=== PATIENT | female | born 1965 ===

== ENCOUNTER → 2021-08-23 12:20 | Outpatient (CLI) | payer OTHER, SELFPAY ==
[2021-08-23 19:04] LABS: Add Manual Diff / Slide Review NO; Basophils Absolute Auto 0 /uL (0-100); Basophils Percent Auto 0.6 % (0-2); Eosinophils Absolute Auto 0 /uL (0-450); Eosinophils Percent Auto 0.4 % (2-4); HEMOLYSIS < 15 (0-50); Hematocrit 39.1 % (36-46); Hemoglobin 13.3 g/dL (12.0-16.0); Iron 139 ug/dL (37-170); Lymphocytes Absolute Auto 1700 /uL (1100-4500); Lymphocytes Percent Auto 40.7 % (25-40); Mean Corpuscular HGB Conc 33.9 % (30-36); Mean Corpuscular Hemoglobin 29.9 PG (26-34); Mean Corpuscular Volume 88.3 fL (80-100); Monocytes Absolute Auto 300 /uL (0-900); Monocytes Percent Auto 6.3 % (3-14); Neutrophils Absolute Auto 2200 /uL (1500-7000); Platelet Count 183 X10^3/uL (150-400); Red Blood Cell Count 4.43 X10^6/uL (4.0-5.2); Red Cell Distribution Width 13.1 % (11.6-14.8); White Blood Cell Count 4.3 X10^3/uL (4.5-11.0)
[2021-08-23 19:08] LABS: Alanine Aminotransferase 35 IU/L (<35); Albumin 4.9 g/dL (3.5-5.0); Albumin Globulin Ratio 1.8 (1.0-2.8); Alkaline Phosphatase 62 U/L (38-126); Aspartate Aminotransferase 36 IU/L (14-36); BUN Creatinine Ratio 19.3 (6-22); Bilirubin Total 0.9 mg/dL (0.2-1.3); Blood Urea Nitrogen 17 mg/dL (7-17); Calcium 9.9 mg/dL (8.4-10.2); Carbon Dioxide 31 mmol/L (22-32); Chloride 101 mmol/L (98-107); Cholesterol 239 mg/dL (140-199); Estimated Glomerular Filt Rate > 60.0 mL/min (>60); Globulin 2.7 g/dL (1.7-4.1); Glucose 98 mg/dL (70-100); HDL Cholesterol 107 mg/dL (40-60); HEMOLYSIS < 15 (0-50); LDL Cholesterol Calculated 122 mg/dL (<100); Potassium 4.2 mmol/L (3.4-5.1); Sodium 138 mmol/L (137-145); Total Protein 7.6 g/dL (6.3-8.2); Triglycerides 48 mg/dL (35-150)
[2021-08-23 19:16] LABS: Percent Iron Saturation 42 % (15-50); Total Iron Binding Capacity 330 ug/dL (265-497); Transferrin 290 mg/dL (206-381)
[2021-08-23 19:17] LABS: Vitamin D 25 Hydroxy (D3) 70.5 ng/mL (30.0-100.0)
[2021-08-23 19:24] LABS: Free T3, Triiodothyronine Free 3.88 pg/mL (2.77-5.27); Free T4, Direct Thyroxine 1.04 ng/dL (0.78-2.19)
[2021-08-23 19:37] LABS: Thyroid Stimulating Hormone 0.882 uIU/mL (0.47-4.68)
[2021-08-23 19:43] LABS: Ferritin 93 ng/mL (11-264)
[2021-08-23 20:14] LABS: Folate > 20.0 ng/mL (2.76-20.0); Vitamin B12 > 1000 pg/mL (239-931)
[2021-08-24 06:58] LABS: C Peptide 1.2 ng/mL (1.1-4.4); Insulin Level Total 2.4 uIU/mL (2.6-24.9)
[2021-08-24 08:10] LABS: Apolipoprotein B 106 mg/dL (<90)
[2021-08-30 15:25] LABS: 1,25-Dihydroxy, Vitamin D-2 <10 pg/mL (.)
== END ==
PROVIDERS: PCP Physician Assistant Medical; Visit Provider Naturopath
DX: Z29.9 Encounter for prophylactic measures, unspecified (principal); H93.13 Tinnitus, bilateral; M19.90 Unspecified osteoarthritis, unspecified site
CPT/HCPCS: 80053; 80061; 82172; 82306; 82607; 82652; 82728; 82746; 83525; 83540; 83550; 83695; 84439; 84443; 84481; 84681; 85025

== ENCOUNTER → 2022-03-05 14:17 | Outpatient (CLI) | payer OTHER, SELFPAY ==
[2022-03-05 19:44] LABS: Add Manual Diff / Slide Review NO; Basophils Absolute Auto 0 /uL (0-100); Basophils Percent Auto 0.8 % (0-2); Eosinophils Absolute Auto 0 /uL (0-450); Eosinophils Percent Auto 0.7 % (2-4); Hematocrit 40.2 % (36-46); Hemoglobin 13.5 g/dL (12.0-16.0); Lymphocytes Absolute Auto 2000 /uL (1100-4500); Lymphocytes Percent Auto 38.7 % (25-40); Mean Corpuscular HGB Conc 33.6 % (30-36); Mean Corpuscular Hemoglobin 29.9 PG (26-34); Mean Corpuscular Volume 88.9 fL (80-100); Monocytes Absolute Auto 400 /uL (0-900); Monocytes Percent Auto 7.4 % (3-14); Neutrophils Absolute Auto 2700 /uL (1500-7000); Neutrophils Percent Auto 52.4 % (50-75); Platelet Count 183 X10^3/uL (150-400); Red Blood Cell Count 4.52 X10^6/uL (4.0-5.2); Red Cell Distribution Width 13.2 % (11.6-14.8); White Blood Cell Count 5.1 X10^3/uL (4.5-11.0)
[2022-03-05 19:57] LABS: Alanine Aminotransferase 18 IU/L (<35); Albumin 4.2 g/dL (3.5-5.0); Albumin Globulin Ratio 1.8 (1.0-2.8); Alkaline Phosphatase 55 U/L (38-126); Aspartate Aminotransferase 30 IU/L (14-36); BUN Creatinine Ratio 18.1 (6-22); Bilirubin Total 0.7 mg/dL (0.2-1.3); Blood Urea Nitrogen 15 mg/dL (7-17); Calcium 8.9 mg/dL (8.4-10.2); Carbon Dioxide 30 mmol/L (22-32); Estimated Glomerular Filt Rate > 60 mL/min (>60); Globulin 2.3 g/dL (1.7-4.1); Glucose 93 mg/dL (70-100); HEMOLYSIS < 15 (0-50); Sodium 139 mmol/L (137-145); Total Protein 6.5 g/dL (6.3-8.2)
[2022-03-05 20:09] LABS: Chloride 103 mmol/L (98-107)
[2022-03-05 20:26] LABS: Free T3, Triiodothyronine Free 3.91 pg/mL (2.77-5.27); Free T4, Direct Thyroxine 1.13 ng/dL (0.78-2.19)
[2022-03-05 20:39] LABS: Thyroid Stimulating Hormone 0.513 uIU/mL (0.47-4.68)
[2022-03-06 23:10] LABS: C Peptide 1.2 ng/mL (1.1-4.4); Insulin Level Total 2.7 uIU/mL (2.6-24.9)
== END ==
PROVIDERS: Naturopath; PCP Physician Assistant Medical; Visit Provider Physician Assistant Medical
DX: R94.7 Abnormal results of other endocrine function studies (principal)
CPT/HCPCS: 80053; 83525; 84439; 84443; 84481; 84681; 85025

== ENCOUNTER → 2024-07-14 10:54 | Outpatient (CLI) | payer OTHER, SELFPAY ==
[2024-07-14 20:16] LABS: Add Manual Diff / Slide Review NO; Basophils Absolute Auto 0 /uL (0-100); Basophils Percent Auto 0.8 % (0-2); Eosinophils Absolute Auto 0 /uL (0-450); Eosinophils Percent Auto 0.6 % (2-4); Hemoglobin 13.7 g/dL (12.0-16.0); Lymphocytes Absolute Auto 1900 /uL (1100-4500); Lymphocytes Percent Auto 35.3 % (25-40); Mean Corpuscular HGB Conc 33.3 % (30-36); Mean Corpuscular Hemoglobin 29.6 PG (26-34); Mean Corpuscular Volume 88.8 fL (80-100); Monocytes Absolute Auto 300 /uL (0-900); Monocytes Percent Auto 5.9 % (3-14); Neutrophils Absolute Auto 3100 /uL (1500-7000); Neutrophils Percent Auto 57.4 % (50-75); Platelet Count 193 X10^3/uL (150-400); Red Blood Cell Count 4.62 X10^6/uL (4.0-5.2); Red Cell Distribution Width 13.2 % (11.6-14.8); White Blood Cell Count 5.3 X10^3/uL (4.5-11.0)
[2024-07-14 20:18] LABS: Hemoglobin A1C% w Est Avg Glu 5.4 % (4.0-6.0)
[2024-07-14 20:25] LABS: Alanine Aminotransferase 24 IU/L (<35); Albumin 4.1 g/dL (3.5-5.0); Albumin Globulin Ratio 1.6 (1.0-2.8); Alkaline Phosphatase 62 U/L (38-126); Aspartate Aminotransferase 37 IU/L (14-36); BUN Creatinine Ratio 27.2 (6-22); Bilirubin Total 0.7 mg/dL (0.2-1.3); Blood Urea Nitrogen 22 mg/dL (7-17); Calcium 9.2 mg/dL (8.4-10.2); Carbon Dioxide 30 mmol/L (22-32); Chloride 103 mmol/L (98-107); Cholesterol 253 mg/dL (140-199); Estimated Glomerular Filt Rate > 60 mL/min (>60); Globulin 2.6 g/dL (1.7-4.1); Glucose 93 mg/dL (70-100); HDL Cholesterol 104 mg/dL (40-60); HEMOLYSIS 21 (0-50); LDL Cholesterol Calculated 139 mg/dL (<100); Potassium 4.1 mmol/L (3.4-5.1); Sodium 136 mmol/L (137-145); Total Protein 6.7 g/dL (6.3-8.2); Triglycerides 52 mg/dL (35-150)
[2024-07-14 20:46] LABS: Free T3, Triiodothyronine Free 4.31 pg/mL (2.77-5.27); Free T4, Direct Thyroxine 1.03 ng/dL (0.78-2.19)
[2024-07-14 21:00] LABS: Thyroid Stimulating Hormone 0.197 uIU/mL (0.47-4.68)
[2024-07-16 03:10] LABS: Apolipoprotein B 109 mg/dL (<90)
== END ==
PROVIDERS: Naturopath; PCP Physician Assistant Medical
DX: R60.9 Edema, unspecified (principal); E04.1 Nontoxic single thyroid nodule
CPT/HCPCS: 80053; 80061; 82172; 83036; 83525; 84439; 84443; 84481; 84681; 85025